=== PATIENT | female | born 1975 | race Caucasian/White ===

== ENCOUNTER 2016-11-20 20:02 | Emergency (ER) ==
[2016-11-20 20:13] VITALS: BP 103/73; TEMP 98.1; BMI 21.6
--- NOTE | 2016-11-20 20:54 | ED.PDOC ---
General ED Provider: Dr. DAVE HONG Chief Complaint: Hip Pain/Injury Stated Complaint: Patient is a 41 year old female who states that when she got out of bed this morning slipped on a rug landing on the right hip. Now has pain on the hip and lower back. Pain is radiating to the right leg. Has a history of chronic back pain. Time Seen by Physician: 20:53 Information Source: Patient Exam Limitations: No limitations Primary Care Provider: ONEIDA HERNANDEZ Nursing and Triage Documentation Reviewed and Agree: Yes Review of Systems - Review Of Systems Constitutional: Reports: No symptoms Musculoskeletal: Reports: Back pain, Joint pain All Other Systems: Reviewed and Negative Past Medical History - Past Medical History Previously Healthy: Yes Endocrine: Reports: None Cardiovascular: Reports: Hypertension Respiratory: Reports: Asthma Hematological: Reports: None Gastrointestinal: Reports: None Genitourinary: Reports: None Neuro/Psych: Reports: Anxiety, Depression Musculoskeletal: Reports: Arthritis Cancer: Reports: None Last Menstrual Period: PT HAS HAD A HYSTERECTOMY - Surgical History General Surgical History: Reports: - Family History Family History: Reports: Unknown - Social History Smoking Status: Current every day smoker, Heavy tobacco smoker Hx Substance Use: No Alcohol Screening: None - Immunizations Tetanus Shot up to Date: Yes Physical Exam - Physical Exam Appearance: Ill-appearing Ill-appearing: Mild Pain Distress: Severe Neck: Supple Respiratory: Airway patent, Breath sounds clear, Breath sounds equal, Respirations nonlabored Cardiovascular: RRR, Pulses normal, No rub, No murmur GI/: Soft, Nontender, No masses, Bowel sounds normal, No Organomegaly Musculoskeletal: Limited ROM (of hip and back ) Skin: Warm, Dry Neurological: Sensation intact, Motor intact, Alert, Oriented Psychiatric: Affect appropriate, Mood appropriate Interpretation - Radiology Interpretation Radiology Interpretation By: ED Physician Radiology Results: Negative Exam Interpreted: Other (Right hip ) Critical Care Note - Critical Care Note Total Time (mins): 0 Course - Course Orders, Labs, Meds: Orders Category Date Time Status Meperidine HCl/Pf [Demerol 50 mg/ml Syringe] MEDS 11/20/16 21:14 Discontinued 50 mg IM ONCE STA Promethazine HCl [Phenergan 25 mg/ml Vial] MEDS 11/20/16 21:14 Discontinued 25 mg IM ONCE STA HIP, RIGHT 2 VIEWS Stat RADS 11/20/16 20:53 Completed Medications Discontinued Medications Generic Name Dose Route Start Last Admin Trade Name Freq PRN Reason Stop Dose Admin Meperidine HCl 50 mg 11/20/16 21:14 11/20/16 21:21 Demerol 50 Mg/Ml Syringe IM 11/20/16 21:15 50 mg ONCE STA Administration Promethazine HCl 25 mg 11/20/16 21:14 11/20/16 21:21 Phenergan 25 Mg/Ml Vial IM 11/20/16 21:15 25 mg ONCE STA Administration Vital Signs: Temp Pulse Resp BP Pulse Ox 11/20/16 20:03 98.1 F 75 18 103/73 97 Departure - Departure Time of Disposition: 21:35 Disposition: HOME SELF-CARE Discharge Problem: Back sprain or strain Injury of hip, right Qualifiers: Encounter type: initial encounter Qualifier Code: (S79.911A) Unspecified injury of right hip, initial encounter Instructions: Arthralgia (ED), Hip Pain (ED) Condition: Fair Pt referred to PMD for follow-up: Yes Additional Instructions: Rest Take pain medications as prescribe follow up with PCP in 3 days. Prescriptions: Hydrocodone/Acetaminophen [[place] 5-325 Tablet] 1 tab PO Q6HR PRN #20 tablet PRN Reason: PAIN Allergies/Adverse Reactions: Allergies codeine Adverse Reaction (Verified 11/20/16 20:11) SWELLING/RASH/HIVES ketorolac tromethamine [From Toradol] Adverse Reaction (Verified 11/20/16 20:11) SWELLING/HIVES/RASH NSAIDS (Non-Steroidal Anti-Inflamma Adverse Reaction (Verified 11/20/16 20:11) THROAT SWELLING/NAUSEA Sulfa (Sulfonamide Antibiotics) Adverse Reaction (Verified 11/20/16 20:11) THROAT SWELLS Home Medications: Ambulatory Orders Lisinopril 20 mg PO DAILY 04/10/14 Hydrocodone/Acetaminophen [[place] 5-325 Tablet] 1 tab PO Q6HR PRN #20 tablet 06/08
[2016-11-20] MEDS ORDERED: DEMEROL 50 MG/ML SYRINGE IM STA (21:14)
[2016-11-20] MEDS ORDERED: PHENERGAN 25 MG/ML VIAL IM STA (21:14)
--- NOTE | 2016-11-20 21:22 | DI ---
Exam: Two x-rays of the right hip. Comparison: CT pelvis performed 11/17/2014. Reason for exam: Hip pain from trauma. FINDINGS: No acute fracture or dislocation. The femoral head articulates with the acetabulum. The joint spaces are relatively well maintained. Impression: No acute fracture or dislocation in the right hip
== END 2016-11-20 22:00 | disposition home or self-care (01) ==
LOC: ED 20:02
DX: S79.911A Unspecified injury of right hip, initial encounter (principal); M54.5 Low back pain; W01.0XXA Fall on same level from slipping, tripping and stumbling without subsequent striking against object, initial encounter; F17.210 Nicotine dependence, cigarettes, uncomplicated
CPT/HCPCS: 96372; 99282

== ENCOUNTER 2017-05-05 22:48 | Emergency (ER) ==
[2017-05-05 22:56] VITALS: BP 115/76; TEMP 98; BMI 23.8
--- NOTE | 2017-05-05 23:14 | ED.PDOC ---
General ED Provider: Dr. PATRICIA TORRES Chief Complaint: Constipation Stated Complaint: Patient has h/o constipation, takes OTc meds no help. Did not go BM for 15 days, belly swollen, tender, shortness of breath. Time Seen by Physician: 23:12 Mode of Arrival: Walk-In Information Source: Patient Nursing and Triage Documentation Reviewed and Agree: Yes GI Complaint Exam - Abdominal Pain Complaint/Exam Onset: Gradual Symptoms Are: Still present Timing: Constant Initial Severity: Moderate Current Severity: Moderate Location of Pain: Discrete, Epigastric Character: Reports: Dull, Aching Aggravating: Reports: None Alleviating: Reports: None Associated Signs and Symptoms: Reports: Constipation Related History: Reports: Similar episode AAA Risk Factors: Reports: None Cardiac Risk Factors: Reports: None Ectopic Risk Factors: Reports: None Ovarian Torsion Risk Factors: Reports: None Surgical Obstruction Risk Factors: Reports: None Related Surgical History: Reports: None Differential Diagnoses: Other (Constipation) Review of Systems - Review Of Systems Constitutional: Reports: No symptoms Eyes: Reports: No symptoms Ears, Nose, Mouth, Throat: Reports: No symptoms Respiratory: Reports: No symptoms Cardiac: Reports: No symptoms GI: Reports: Constipated : Reports: No symptoms Musculoskeletal: Reports: No symptoms Skin: Reports: No symptoms Neurological: Reports: No symptoms Endocrine: Reports: No symptoms Hematologic/Lymphatic: Reports: No symptoms All Other Systems: Reviewed and Negative Past Medical History - Past Medical History Previously Healthy: Yes Endocrine: Reports: None Cardiovascular: Reports: Hypertension Respiratory: Reports: Asthma Hematological: Reports: None Gastrointestinal: Reports: None Genitourinary: Reports: None Neuro/Psych: Reports: Anxiety, Depression Musculoskeletal: Reports: Arthritis, Back Pain Cancer: Reports: None Last Menstrual Period: 2013 - Surgical History General Surgical History: Reports: - Family History Family History: Reports: Unknown - Social History Smoking Status: Current every day smoker, Heavy tobacco smoker Smoking Cessation Counseling Time: > 3 min - 10 min Hx Substance Use: No Alcohol Screening: None - Immunizations Tetanus Shot up to Date: Yes Physical Exam - Physical Exam Appearance: Ill-appearing Pain Distress: Mild Eyes: JOLENE, EOMI, Conjunctiva clear ENT: Ears normal, Nose normal, Oropharynx normal Respiratory: Airway patent, Breath sounds clear, Breath sounds equal, Respirations nonlabored Cardiovascular: RRR, Pulses normal, No rub, No murmur GI/: Tender, Bowel sounds hypoactive Musculoskeletal: Normal strength, ROM intact, No edema, No calf tenderness Skin: Warm, Dry, Normal color Neurological: Sensation intact, Motor intact, Reflexes intact, Cranial nerves intact, Alert, Oriented Psychiatric: Affect appropriate, Mood appropriate Critical Care Note - Critical Care Note Total Time (mins): 20 Course - Course Hematology/Chemistry: 05/05/17 23:20 05/05/17 23:20 Orders, Labs, Meds: Lab Review 05/05/17 05/05/17 23:20 23:20 WBC 7.38 RBC 3.80 L Hgb 12.1 Hct 35.2 L MCV 92.6 MCH 31.8 H MCHC 34.4 RDW Coeff of Joan 14.1 Plt Count 290 Immature Gran % (Auto) 0.1 Neut % (Auto) 62.4 Lymph % (Auto) 29.4 Dawson % (Auto) 3.5 Eos % (Auto) 4.1 Baso % (Auto) 0.5 Immature Gran # (Auto) 0.0 Neut # 4.6 Lymph # 2.2 Dawson # 0.3 L Eos # 0.3 Baso # 0.0 Sodium 141 Potassium 3.8 Chloride 107 Carbon Dioxide 22 Anion Gap 15.8 BUN 15 Creatinine 0.89 Estimated GFR (MDRD) 69.00 BUN/Creatinine Ratio 16.85 Glucose 77 Calcium 9.7 Total Bilirubin 0.22 AST 30 ALT 6 L Alkaline Phosphatase 62 Total Protein 7.2 Albumin 3.5 Globulin 3.7 Albumin/Globulin Ratio 0.95 Orders Category Date Time Status Enema [ENEMA/RECTAL TUBE] ONCE CARE 05/05/17 23:35 Completed Enema [ED ENEMA/RECTAL TUBE] .ONCE EMERGENCY 05/05/17 23:44 Active CBC W/ AUTO DIFF Stat LAB 05/05/17 23:20 Completed COMPREHENSIVE METABOLIC PANEL Stat LAB 05/05/17 23:20 Completed Magnesium Citrate [Citrate of Magnesia] MEDS 05/05/17 23:47 Discontinued 10 oz PO ONCE STA Meperidine HCl/Pf [Demerol 25 mg/ml Vial] MEDS 05/05/17 23:10 Discontinued 25 mg IM ONCE STA Ondansetron HCl/Pf [Zofran 4 mg/2 ml] MEDS 05/05/17 23:10 Discontinued 4 mg IM ONCE STA CT ABDOMEN/PELVIS WO CONTRAST Stat RADS 05/05/17 23:10 Completed Medications Discontinued Medications Generic Name Dose Route Start Last Admin Trade Name Laisha PRN Reason Stop Dose Admin Magnesium Citrate 10 oz 05/05/17 23:47 05/06/17 00:44 Citrate Of Magnesia PO 05/05/17 23:48 10 oz ONCE STA Administration Meperidine HCl 25 mg 05/05/17 23:10 05/05/17 23:22 Demerol 25 Mg/Ml Vial IM 05/05/17 23:11 25 mg ONCE STA Administration Ondansetron HCl 4 mg 05/05/17 23:10 05/05/17 23:22 Zofran 4 Mg/2 Ml IM 05/05/17 23:11 4 mg ONCE STA Administration Vital Signs: Temp Pulse Resp BP Pulse Ox 05/05/17 22:48 98 F 98 H 20 115/76 98 Departure - Departure Time of Disposition: 23:16 Disposition: AMA Discharge Problem: Constipation Instructions: Constipation (ED) Condition: Good Pt referred to PMD for follow-up: Yes Additional Instructions: INCREASE FIBER DIET NEED COLONOSCOPY. EXERCISE Prescriptions: Polyethylene Glycol 3350 [Miralax] 17 gm PO DAILY #30 powd.pack Allergies/Adverse Reactions: Allergies codeine Adverse Reaction (Verified 05/05/17 22:56) SWELLING/RASH/HIVES ketorolac tromethamine [From Toradol] Adverse Reaction (Verified 05/05/17 22:56) SWELLING/HIVES/RASH NSAIDS (Non-Steroidal Anti-Inflamma Adverse Reaction (Verified 05/05/17 22:56) THROAT SWELLING/NAUSEA Sulfa (Sulfonamide Antibiotics) Adverse Reaction (Verified 05/05/17 22:56) THROAT SWELLS Home Medications: Ambulatory Orders Lisinopril 20 mg PO DAILY 04/10/14 Polyethylene Glycol 3350 [Miralax] 17 gm PO DAILY #30 powd.pack 05/05/17 Disposition Discussed With: Patient, Family
[2017-05-05] MEDS: DEMEROL 25 MG/ML VIAL IM STA (23:22)
[2017-05-05] MEDS: ZOFRAN 4 MG/2 ML IM STA (23:22)
[2017-05-05 23:27] LABS: BASOPHILS % (AUTO) 0.5 % (0.0-3.0); EOSINOPHILS # (AUTO) 0.3 K/ul (0.0-0.7); EOSINOPHILS % (AUTO) 4.1 % (0.0-7.0); HEMATOCRIT 35.2 % (37.0-47.0); HEMOGLOBIN 12.1 g/dl (12.0-16.0); IMMATURE GRANULOCYTE % (AUTO) 0.1 % (0.0-5.0); LYMPHOCYTES # (AUTO) 2.2 K/uL (0.60-3.4); LYMPHOCYTES % (AUTO) 29.4 (10.0-50.0); MEAN CORPUSCULAR HEMOGLOBIN 31.8 pg (27.0-31.0); MEAN CORPUSCULAR HGB CONC 34.4 (31.8-35.4); MEAN CORPUSCULAR VOLUME 92.6 fl (81.0-99.0); MONOCYTES # (AUTO) 0.3 K/uL (0.4-2.0); MONOCYTES % (AUTO) 3.5 (0-10); NEUTROPHILS # (AUTO) 4.6 K/ul (2.0-6.9); NEUTROPHILS % (AUTO) 62.4; PLATELET COUNT 290 10^3/uL (140-440); WHITE BLOOD COUNT 7.38 K/ul (4.6-10.2)
[2017-05-05 23:46] LABS: ALBUMIN 3.5 g/dL (3.4-5.0); ALBUMIN/GLOBULIN RATIO 0.95; ANION GAP 15.8; BILIRUBIN,TOTAL 0.22 mg/dL (0.00-1.20); BUN/CREATININE RATIO 16.85; CALCIUM 9.7 mg/dL (8.2-10.2); CREATININE 0.89 mg/dL (0.60-1.30); POTASSIUM 3.8 mmol/L (3.5-5.10); TOTAL PROTEIN 7.2 g/dL (6.4-8.2)
--- NOTE | 2017-05-05 23:50 | CT ---
Exam: CT of the abdomen and pelvis without intravenous contrast History: Constipation Technique: [address] of the abdomen and pelvis without intravascular contrast FINDINGS: Trace pleural effusions. The lung bases are clear otherwise. No significant liver abnorma lity. The adrenals, pancreas and spleen are unremarkable. The stomach and hiatus are unremarkable.The gallbladder appears normal. The appendix is normal. Bowel loops demonstrate normal caliber. No infl amatory change seen in the mesentery or retroperitoneum. Moderate gudino colonic stool retention. Vascu lar structures appear normal by noncontrast CT. Prior hysterectomy. Normal urinary bladder. No pelvic fat inflammation. No acute findings of the s [place]. Impression: 1. No inflammatory process, bowel or urinary obstruction is seen. 2. Moderate gudino colonic stool retention approaching large. Correlate for symptoms. 3. Small bilateral pleural effusions are nonspecific
[2017-05-06] MEDS: CITRATE OF MAGNESIA PO STA (00:44)
== END 2017-05-06 02:25 | disposition left against medical advice (07) ==
LOC: ED 22:48
DX: K59.00 Constipation, unspecified (principal); F17.210 Nicotine dependence, cigarettes, uncomplicated
CPT/HCPCS: 36415; 80053; 85025; 96372; 99283

== ENCOUNTER 2017-05-12 14:52 | Outpatient (CLI) ==
--- NOTE | 2017-05-13 09:37 | MAMMO ---
EXAM: Bilateral digital screening mammogram (2-D and 3-D) History: Screening Comparison: None available. Findings: MLO and CC views of bilateral breasts demonstrate scattered fibroglandular breast parenchy ma. There is a small benign lymph node within the upper-outer quadrant of the right breast. There a re no suspicious masses or abnormal microcalcifications. No architectural distortions. Impression: Benign mammogram. Recommend followup routine screening mammography in 1 year. BIRADS 2
== END 2017-05-12 14:53 | disposition home or self-care (01) ==
LOC: RAD 14:52
PROVIDERS: ATTEND Emergency Medicine
DX: Z12.31 Encounter for screening mammogram for malignant neoplasm of breast (principal)
CPT/HCPCS: 77067

== ENCOUNTER 2018-02-15 10:30 | Emergency (ER) ==
[2018-02-15 10:41] VITALS: BP 122/84; TEMP 98.9; BMI 25.6
--- NOTE | 2018-02-15 10:59 | ED.PDOC ---
General ED Provider: Dr. TREVOR KIRBY Chief Complaint: Tooth Problem Stated Complaint: dental pain Time Seen by Physician: 10:35 Mode of Arrival: Walk-In Information Source: Patient Exam Limitations: No limitations Primary Care Provider: ELIANE LLANOS Nursing and Triage Documentation Reviewed and Agree: Yes Does patient meet sepsis criteria?: No If yes, has appropriate treatment been initiated?: No System Inflammatory Response Syndrome: Not Applicable Sepsis Protocol: For patient's 13 years and over: Temp is 96.8 and below OR 101 and greater Pulse >90 BPM Resp >20/minute Acutely Altered Mental Status Are patient's symptoms suggestive of a new infection, such as: -Pneumonia -Skin, Soft Tissue -Endocarditis -UTI -Bone, Joint Infection -Implantable Device -Acute Abdominal Infection -Wound Infection -Meningitis -Blood Stream Catheter Infection -Unknown EENT Complaint Exam - Dental/Oral Complaint/Exam Mechanism of Injury: No known trauma Onset/Duration: chronic Symptoms Are: Still present Timing: Constant Initial Severity: Moderate Current Severity: Moderate Character: Reports: Aching, Throbbing Aggravating: Reports: Heat, Cold, Chewing Alleviating: Reports: None Associated Signs and Symptoms: Denies: Swelling, Discharge, Fever, Foul odor, Foul taste in mouth Related History: Reports: Similar episode Cardiac Risk Factors: Reports: None Tooth Findings: Present: Gross decay, Gross caries, Dental fracture Cervical Lymphadenopathy Present: No Facial Swelling Present: No Bleeding Present: No Oropharynx Findings: Absent: Clots, Active bleeding Septal Hematoma: No Foreign Body Present: No Dysphagia Present: No Drooling Present: No Asymmetrical Tonsillar Swelling Present: No Uvula Midline: Yes Fabiola-tonsillar Fluctuence: No Teeth Picture: 1 - broken Differential Diagnoses: Dental Caries, Fractured Tooth Review of Systems - Review Of Systems Constitutional: Reports: No symptoms Eyes: Reports: No symptoms Ears, Nose, Mouth, Throat: Reports: No symptoms Respiratory: Reports: No symptoms Cardiac: Reports: No symptoms GI: Reports: No symptoms : Reports: No symptoms Musculoskeletal: Reports: No symptoms Skin: Reports: No symptoms Neurological: Reports: No symptoms Endocrine: Reports: No symptoms Hematologic/Lymphatic: Reports: No symptoms All Other Systems: Reviewed and Negative Past Medical History - Past Medical History Previously Healthy: Yes Endocrine: Reports: None Cardiovascular: Reports: Hypertension Respiratory: Reports: Asthma Hematological: Reports: None Gastrointestinal: Reports: None Genitourinary: Reports: None Neuro/Psych: Reports: Anxiety, Depression Musculoskeletal: Reports: Arthritis, Back Pain Cancer: Reports: None Last Menstrual Period: na - Surgical History General Surgical History: Reports: - Family History Family History: Reports: Unknown - Social History Smoking Status: Current some day smoker Hx Substance Use: No Alcohol Screening: None - Immunizations Tetanus Shot up to Date: Yes Physical Exam - Physical Exam Appearance: Well-appearing, No pain distress, Well-nourished Eyes: JOLENE, EOMI, Conjunctiva clear ENT: Ears normal, Nose normal, Oropharynx normal Respiratory: Airway patent, Breath sounds clear, Breath sounds equal, Respirations nonlabored Cardiovascular: RRR, Pulses normal, No rub, No murmur GI/: Soft, Nontender, No masses, Bowel sounds normal, No Organomegaly Musculoskeletal: Normal strength, ROM intact, No edema, No calf tenderness Skin: Warm, Dry, Normal color Neurological: Sensation intact, Motor intact, Reflexes intact, Cranial nerves intact, Alert, Oriented Psychiatric: Affect appropriate, Mood appropriate Critical Care Note - Critical Care Note Total Time (mins): 0 Course - Course Vital Signs: Temp Pulse Resp BP Pulse Ox 02/15/18 10:34 98.9 F 103 H 16 122/84 96 Departure - Departure Time of Disposition: 10:59 Disposition: HOME SELF-CARE Discharge Problem: Toothache Instructions: Toothache (ED) Condition: Good Pt referred to PMD for follow-up: Yes IPMP verified?: No Additional Instructions: Please call your Family Physician as soon as possible to schedule a follow-up appointment. Allergies/Adverse Reactions: Allergies codeine Adverse Reaction (Verified 02/15/18 10:40) SWELLING/RASH/HIVES ketorolac tromethamine [From Toradol] Adverse Reaction (Verified 02/15/18 10:40) SWELLING/HIVES/RASH NSAIDS (Non-Steroidal Anti-Inflamma Adverse Reaction (Verified 02/15/18 10:40) THROAT SWELLING/NAUSEA Sulfa (Sulfonamide Antibiotics) Adverse Reaction (Verified 02/15/18 10:40) THROAT SWELLS Home Medications: Ambulatory Orders Alprazolam [Xanax] 1 mg PO TID 02/15/18
== END 2018-02-15 11:05 | disposition home or self-care (01) ==
LOC: ED 10:30
DX: K08.89 Other specified disorders of teeth and supporting structures (principal); K02.7 Dental root caries; S02.5XXA Fracture of tooth (traumatic), initial encounter for closed fracture; F17.210 Nicotine dependence, cigarettes, uncomplicated
CPT/HCPCS: 99282

== ENCOUNTER 2018-03-04 17:36 | Emergency (ER) ==
[2018-03-04 17:44] VITALS: BP 133/96; TEMP 97.8; BMI 24.1
--- NOTE | 2018-03-04 18:02 | ED.PDOC ---
General ED Provider: Dr. DAVE HONG Chief Complaint: Back Pain Stated Complaint: patient is a 42 year old female who comes to the Er with Back pain radiating to the right hip for one week worse today. Time Seen by Physician: 17:57 Mode of Arrival: Walk-In Information Source: Patient Exam Limitations: No limitations Primary Care Provider: ELIANE LLANOS Nursing and Triage Documentation Reviewed and Agree: Yes Does patient meet sepsis criteria?: No System Inflammatory Response Syndrome: Not Applicable Sepsis Protocol: For patient's 13 years and over: Temp is 96.8 and below OR 101 and greater Pulse >90 BPM Resp >20/minute Acutely Altered Mental Status Are patient's symptoms suggestive of a new infection, such as: -Pneumonia -Skin, Soft Tissue -Endocarditis -UTI -Bone, Joint Infection -Implantable Device -Acute Abdominal Infection -Wound Infection -Meningitis -Blood Stream Catheter Infection -Unknown Musculoskeletal Complaint Exam - Back Pain Complaint/Exam Mechanism of Injury: Reports: No known trauma Onset/Duration: 1 week Symptoms Are: Still present Timing: Constant Initial Severity: Moderate Current Severity: Severe Location: Reports: Radiating Character: Reports: Aching, Throbbing, Spasmodic Aggravating: Reports: Movements, Bending, Walking Alleviating: Reports: None Associated Signs and Symptoms: Denies: Fever, Weakness, Numbness, Tingling, Abdominal pain TAD Risk Factors: Reports: None AAA Risk Factors: Reports: None Cauda Equina Risk Factors: Reports: None Epidural Abcess Risk Factors: Reports: None Focal Tenderness: Yes Paraspinal Muscle Tenderness: Yes Paraspinal Muscle Spasm: Yes Scoliosis: No Lordosis: No Kyphosis: No SLR Test: Right Positive, Left Negative Focal Weakness: Present: None Focal Sensory Loss: Present: None Gait: Present: Unsteady (due to pain ) Back Picture: 1 - pain and tenderness to palpation 2 - radiation Differential Diagnoses: Herniated Disk, Strain, Sprain Review of Systems - Review Of Systems Constitutional: Reports: No symptoms Eyes: Reports: No symptoms Ears, Nose, Mouth, Throat: Reports: No symptoms Respiratory: Reports: No symptoms Cardiac: Reports: No symptoms GI: Reports: No symptoms : Reports: No symptoms Musculoskeletal: Reports: Back pain, Muscle pain Skin: Reports: No symptoms Neurological: Reports: Anxiety Endocrine: Reports: No symptoms Hematologic/Lymphatic: Reports: No symptoms All Other Systems: Reviewed and Negative Past Medical History - Past Medical History Previously Healthy: Yes Endocrine: Reports: None Cardiovascular: Reports: Hypertension Respiratory: Reports: Asthma Hematological: Reports: None Gastrointestinal: Reports: None Genitourinary: Reports: None Neuro/Psych: Reports: Anxiety, Depression Musculoskeletal: Reports: Arthritis, Back Pain Cancer: Reports: None Last Menstrual Period: 03/2014 - Surgical History General Surgical History: Reports: - Family History Family History: Reports: Unknown - Social History Smoking Status: Current some day smoker Hx Substance Use: No Alcohol Screening: None - Immunizations Tetanus Shot up to Date: Yes Physical Exam - Physical Exam Appearance: Ill-appearing Ill-appearing: Mild Pain Distress: Severe Neck: Supple Respiratory: Airway patent, Breath sounds clear, Breath sounds equal, Respirations nonlabored Cardiovascular: RRR, Pulses normal, No rub, No murmur Musculoskeletal: Limited ROM (right lower extremity ) Skin: Warm, Dry, Normal color Neurological: Sensation intact, Motor intact, Reflexes intact, Cranial nerves intact, Alert, Oriented Psychiatric: Anxious Re-Evaluation - Re-Evaluation Time of Re-Evaluation: 18:39 Status: Improved Pain Level: 10/30 Critical Care Note - Critical Care Note Total Time (mins): 0 Course - Course Orders, Labs, Meds: Orders Category Date Time Status Dexamethasone 4 mg/ml Inj [Decadron 4 mg/ml Sdv] MEDS 03/04/18 18:06 Discontinued 8 mg IM ONCE STA Orphenadrine Citrate [Norflex] MEDS 03/04/18 18:06 Discontinued 60 mg IM ONCE STA Medications Discontinued Medications Generic Name Dose Route Start Last Admin Trade Name Freq PRN Reason Stop Dose Admin Dexamethasone Sodium Phosphate 8 mg 03/04/18 18:06 03/04/18 18:18 Decadron 4 Mg/Ml Sdv IM 03/04/18 18:07 8 mg ONCE STA Administration Orphenadrine Citrate 60 mg 03/04/18 18:06 03/04/18 18:19 Norflex IM 03/04/18 18:07 60 mg ONCE STA Administration Vital Signs: Temp Pulse Resp BP Pulse Ox 03/04/18 17:39 97.8 F 96 H 16 133/96 H 100 Departure - Departure Time of Disposition: 18:38 Disposition: HOME SELF-CARE Discharge Problem: Piriformis syndrome of right side Instructions: Piriformis Syndrome (ED) Condition: Fair Pt referred to PMD for follow-up: Yes IPMP verified?: No Additional Instructions: Take Medications as prescribed Follow up with PCP in 3 days Rest Prescriptions: Prednisone 20 mg PO DAILYWM #5 tablet Tramadol HCl [Ultram] 50 mg PO Q6H PRN #10 tablet PRN Reason: Severe Pain Allergies/Adverse Reactions: Allergies codeine Adverse Reaction (Verified 03/04/18 17:46) SWELLING/RASH/HIVES ketorolac tromethamine [From Toradol] Adverse Reaction (Verified 03/04/18 17:46) SWELLING/HIVES/RASH NSAIDS (Non-Steroidal Anti-Inflamma Adverse Reaction (Verified 03/04/18 17:46) THROAT SWELLING/NAUSEA Sulfa (Sulfonamide Antibiotics) Adverse Reaction (Verified 03/04/18 17:46) THROAT SWELLS Home Medications: Ambulatory Orders Alprazolam [Xanax] 1 mg PO TID 02/15/18 Prednisone 20 mg PO DAILYWM #5 tablet 03/04/18 Tramadol HCl [Ultram] 50 mg PO Q6H PRN #10 tablet 03/04/18
[2018-03-04] MEDS ORDERED: DECADRON 4 MG/ML SDV IM STA (18:06)
[2018-03-04] MEDS ORDERED: NORFLEX IM STA (18:06)
== END 2018-03-04 18:45 | disposition home or self-care (01) ==
LOC: ED 17:36
DX: G57.01 Lesion of sciatic nerve, right lower limb (principal); F17.210 Nicotine dependence, cigarettes, uncomplicated
CPT/HCPCS: 96372; 99283

== ENCOUNTER 2018-03-08 15:39 | Emergency (ER) ==
[2018-03-08 15:49] VITALS: BP 130/86; TEMP 97.2; BMI 24.9
--- NOTE | 2018-03-08 16:40 | ED.PDOC ---
General ED Provider: Dr. TREVOR KIRBY Chief Complaint: Back Pain Stated Complaint: back pain dental pain Time Seen by Physician: 16:00 Mode of Arrival: Walk-In Information Source: Patient Exam Limitations: No limitations Primary Care Provider: ELIANE LLANOS Nursing and Triage Documentation Reviewed and Agree: Yes Does patient meet sepsis criteria?: No If yes, has appropriate treatment been initiated?: No System Inflammatory Response Syndrome: Not Applicable Sepsis Protocol: For patient's 13 years and over: Temp is 96.8 and below OR 101 and greater Pulse >90 BPM Resp >20/minute Acutely Altered Mental Status Are patient's symptoms suggestive of a new infection, such as: -Pneumonia -Skin, Soft Tissue -Endocarditis -UTI -Bone, Joint Infection -Implantable Device -Acute Abdominal Infection -Wound Infection -Meningitis -Blood Stream Catheter Infection -Unknown Musculoskeletal Complaint Exam - Back Pain Complaint/Exam Mechanism of Injury: Reports: Trauma (4 days ago fell has dental pain) Onset/Duration: 3-4 days Symptoms Are: Still present Timing: Constant Episodes Lasting: Days Initial Severity: Moderate Current Severity: Moderate Location: Reports: Discrete Character: Reports: Aching Aggravating: Reports: Movements Alleviating: Reports: Rest Associated Signs and Symptoms: Denies: Swelling, Redness, Bruising, Fever, Weakness, Numbness, Tingling, Abdominal pain, Flank pain, Bladder incontinence, Bowel incontinence, Weight loss, Pain with weight bearing TAD Risk Factors: Reports: None AAA Risk Factors: Reports: Smoking Cauda Equina Risk Factors: Reports: None Epidural Abcess Risk Factors: Reports: None Related Surgical History: Reports: None Focal Tenderness: No Paraspinal Muscle Tenderness: No Paraspinal Muscle Spasm: No Scoliosis: No Lordosis: No Kyphosis: No SLR Test: Right Negative, Left Negative Hip Motion Testing Pain: Right Negative, Left Negative Focal Weakness: Present: None Focal Sensory Loss: Present: None Gait: Present: Normal Differential Diagnoses: Strain, Sprain Review of Systems - Review Of Systems Constitutional: Reports: No symptoms Eyes: Reports: No symptoms Ears, Nose, Mouth, Throat: Reports: Mouth pain Respiratory: Reports: No symptoms Cardiac: Reports: No symptoms GI: Reports: No symptoms : Reports: No symptoms Musculoskeletal: Reports: Back pain Skin: Reports: No symptoms Neurological: Reports: No symptoms Endocrine: Reports: No symptoms Hematologic/Lymphatic: Reports: No symptoms All Other Systems: Reviewed and Negative Past Medical History - Past Medical History Previously Healthy: Yes Endocrine: Reports: None Cardiovascular: Reports: Hypertension Respiratory: Reports: Asthma Hematological: Reports: None Gastrointestinal: Reports: None Genitourinary: Reports: None Neuro/Psych: Reports: Anxiety, Depression Musculoskeletal: Reports: Arthritis, Back Pain Cancer: Reports: None Last Menstrual Period: none - Surgical History General Surgical History: Reports: - Family History Family History: Reports: Unknown - Social History Smoking Status: Current some day smoker, Light tobacco smoker Hx Substance Use: No Alcohol Screening: None Physical Exam - Physical Exam Appearance: Well-appearing, No pain distress, Well-nourished Eyes: JOLENE, EOMI, Conjunctiva clear ENT: Ears normal, Nose normal, Oropharynx normal Respiratory: Airway patent, Breath sounds clear, Breath sounds equal, Respirations nonlabored Cardiovascular: RRR, Pulses normal, No rub, No murmur GI/: Soft, Nontender, No masses, Bowel sounds normal, No Organomegaly Musculoskeletal: Normal strength, ROM intact, No edema, No calf tenderness Skin: Warm, Dry, Normal color Neurological: Sensation intact, Motor intact, Reflexes intact, Cranial nerves intact, Alert, Oriented Psychiatric: Affect appropriate, Mood appropriate Critical Care Note - Critical Care Note Total Time (mins): 0 Course - Course Vital Signs: Temp Pulse Resp BP Pulse Ox 03/08/18 15:41 97.2 F L 115 H 20 130/86 98 Departure - Departure Time of Disposition: 16:40 (seen with teto at all times ) Disposition: HOME SELF-CARE Discharge Problem: Backache, Pain, dental Back pain Qualifiers: Back pain location: low back pain Back pain laterality: midline Sciatica presence: without sciatica Instructions: Back Pain (ED), Lower Back Exercises (ED), Toothache (ED) Condition: Good Pt referred to PMD for follow-up: Yes IPMP verified?: No Additional Instructions: Please call your Family Physician as soon as possible to schedule a follow-up appointment. Prescriptions: Amoxicillin 500 mg PO Q8HR #21 tablet Hydrocodone/Acetaminophen [Cheriton 10-325 Tablet] 1 each PO Q8HR #12 tablet Allergies/Adverse Reactions: Allergies codeine Adverse Reaction (Verified 03/08/18 15:44) SWELLING/RASH/HIVES ketorolac tromethamine [From Toradol] Adverse Reaction (Verified 03/08/18 15:44) SWELLING/HIVES/RASH NSAIDS (Non-Steroidal Anti-Inflamma Adverse Reaction (Verified 03/08/18 15:44) THROAT SWELLING/NAUSEA Sulfa (Sulfonamide Antibiotics) Adverse Reaction (Verified 03/08/18 15:44) THROAT SWELLS Home Medications: Ambulatory Orders Amoxicillin 500 mg PO Q8HR #21 tablet 03/08/18 Hydrocodone/Acetaminophen [Cheriton 10-325 Tablet] 1 each PO Q8HR #12 tablet
== END 2018-03-08 16:44 | disposition home or self-care (01) ==
LOC: ED 15:39
DX: M54.5 Low back pain (principal); K08.89 Other specified disorders of teeth and supporting structures; W19.XXXA Unspecified fall, initial encounter; F17.210 Nicotine dependence, cigarettes, uncomplicated
CPT/HCPCS: 99282

== ENCOUNTER 2018-03-13 11:33 | Outpatient (CLI) | END 2018-03-13 11:34 | disposition home or self-care (01) | LOC: LAB 11:33 | PROVIDERS: ATTEND Family Medicine | DX: F41.1 Generalized anxiety disorder (principal); F12.90 Cannabis use, unspecified, uncomplicated; Z87.898 Personal history of other specified conditions | CPT/HCPCS: 80306 ==

== ENCOUNTER 2018-10-16 17:13 | Emergency (ER) | payer MEDICAID, OTHER ==
[2018-10-16 17:18] VITALS: BP 147/90; TEMP 99.8; BMI 25.9
--- NOTE | 2018-10-16 18:02 | ED.PDOC ---
General ED Provider: Dr. TREVOR KIRBY Chief Complaint: Tooth Problem Stated Complaint: dental pain Time Seen by Physician: 17:20 Mode of Arrival: Walk-In Information Source: Patient Exam Limitations: No limitations Primary Care Provider: ONEIDA HERNANDEZ Nursing and Triage Documentation Reviewed and Agree: Yes Does patient meet sepsis criteria?: No System Inflammatory Response Syndrome: Not Applicable Sepsis Protocol: For patient's 13 years and over: Temp is 96.8 and below OR 101 and greater Pulse >90 BPM Resp >20/minute Acutely Altered Mental Status Are patient's symptoms suggestive of a new infection, such as: -Pneumonia -Skin, Soft Tissue -Endocarditis -UTI -Bone, Joint Infection -Implantable Device -Acute Abdominal Infection -Wound Infection -Meningitis -Blood Stream Catheter Infection -Unknown EENT Complaint Exam - Dental/Oral Complaint/Exam Mechanism of Injury: No known trauma Onset/Duration: chronic due to poor dentition Symptoms Are: Still present Timing: Intermittent Initial Severity: Moderate Character: Reports: Aching, Throbbing Aggravating: Reports: Heat, Cold, Chewing Alleviating: Reports: None. Denies: OTC Meds Associated Signs and Symptoms: Denies: Swelling, Discharge, Fever, Foul odor, Foul taste in mouth Related History: Reports: Similar episode Cardiac Risk Factors: Reports: None Dental/Oral Surgical History: Reports: None Tooth Findings: Present: Gross caries, Dental fracture Cervical Lymphadenopathy Present: No Facial Swelling Present: No Bleeding Present: No Oropharynx Findings: Absent: Clots, Active bleeding Septal Hematoma: No Foreign Body Present: No Drooling Present: No Asymmetrical Tonsillar Swelling Present: No Uvula Midline: No Fabiola-tonsillar Fluctuence: No Trismus Present: No Palatal Petechiae Present: No Scarlatinaform Rash Present: No Lesions: Absent: Lip, Gums, Tongue, Buccal Mucosa, Pharynx Exanthem: Absent: Lip, Gums, Tongue, Buccal Mucosa, Pharynx Vesicles: Absent: Tongue, Buccal Mucosa, Pharynx Teeth Picture: 1 - dental decay Differential Diagnoses: Dental Caries, Fractured Tooth Review of Systems - Review Of Systems Constitutional: Reports: No symptoms Eyes: Reports: No symptoms Ears, Nose, Mouth, Throat: Reports: No symptoms Respiratory: Reports: No symptoms Cardiac: Reports: No symptoms GI: Reports: No symptoms : Reports: No symptoms Musculoskeletal: Reports: No symptoms Skin: Reports: No symptoms Neurological: Reports: No symptoms Endocrine: Reports: No symptoms Hematologic/Lymphatic: Reports: No symptoms All Other Systems: Reviewed and Negative Past Medical History - Past Medical History Previously Healthy: Yes Endocrine: Reports: None Cardiovascular: Reports: Hypertension Respiratory: Reports: Asthma Hematological: Reports: None Gastrointestinal: Reports: None Genitourinary: Reports: None Neuro/Psych: Reports: Anxiety, Depression Musculoskeletal: Reports: Arthritis, Back Pain Cancer: Reports: None Last Menstrual Period: hysterectomy - Surgical History General Surgical History: Reports: - Family History Family History: Reports: Unknown - Social History Smoking Status: Current some day smoker, Light tobacco smoker Hx Substance Use: No Alcohol Screening: None Physical Exam - Physical Exam Appearance: Well-appearing, No pain distress, Well-nourished Eyes: JOLENE, EOMI, Conjunctiva clear ENT: Ears normal, Nose normal, Oropharynx normal Respiratory: Airway patent, Breath sounds clear, Breath sounds equal, Respirations nonlabored Cardiovascular: RRR, Pulses normal, No rub, No murmur GI/: Soft, Nontender, No masses, Bowel sounds normal, No Organomegaly Musculoskeletal: Normal strength, ROM intact, No edema, No calf tenderness Skin: Warm, Dry, Normal color Neurological: Sensation intact, Motor intact, Reflexes intact, Cranial nerves intact, Alert, Oriented Psychiatric: Affect appropriate, Mood appropriate Critical Care Note - Critical Care Note Total Time (mins): 0 Course - Course Vital Signs: Temp Pulse Resp BP Pulse Ox 10/16/18 17:14 99.8 F H 111 H 20 147/90 H 95 Departure - Departure Time of Disposition: 18:00 Disposition: HOME SELF-CARE Discharge Problem: Toothache Instructions: Toothache (ED) Condition: Good Pt referred to PMD for follow-up: Yes IPMP verified?: No Additional Instructions: Please call your Family Physician as soon as possible to schedule a follow-up appointment. Allergies/Adverse Reactions: Allergies codeine Adverse Reaction (Verified 10/16/18 17:20) SWELLING/RASH/HIVES ketorolac tromethamine [From Toradol] Adverse Reaction (Verified 10/16/18 17:20) SWELLING/HIVES/RASH NSAIDS (Non-Steroidal Anti-Inflamma Adverse Reaction (Verified 10/16/18 17:20) THROAT SWELLING/NAUSEA Sulfa (Sulfonamide Antibiotics) Adverse Reaction (Verified 10/16/18 17:20) THROAT SWELLS Home Medications: Ambulatory Orders 1 [No Reported Medications] 10/16/18
== END 2018-10-16 18:08 | disposition home or self-care (01) ==
LOC: ED 17:13
DX: K08.89 Other specified disorders of teeth and supporting structures (principal); K02.7 Dental root caries; S02.5XXA Fracture of tooth (traumatic), initial encounter for closed fracture; F17.210 Nicotine dependence, cigarettes, uncomplicated
CPT/HCPCS: 99282